=== PATIENT | female | born 1995 | race Caucasian/White ===

== ENCOUNTER 2022-09-22 08:00 | Outpatient (CLI) | payer OTHER ==
[2022-09-22 16:06] LABS: BILIRUBIN,URINE NEGATIVE (NEGATIVE); GLUCOSE, URINE (UA) NEGATIVE (NEGATIVE); KETONES,URINE (UA) TRACE mg/dL (NEGATIVE); LEUKOCYTE ESTERASE, URINE NEGATIVE (NEGATIVE); NITRITE,URINE NEGATIVE (NEGATIVE); OCCULT BLOOD,URINE NEGATIVE (NEGATIVE); PH,URINE 6.5 PH (5.0-7.5); PROTEIN,URINE NEGATIVE (NEGATIVE); UROBILINOGEN,URINE 0.2 (NORMAL) E.U./dL (NORMAL)
[2022-09-22 16:12] LABS: AMORPHOUS SEDIMENT,UR Moderate /LPF; BACTERIA,URINE Moderate /HPF (None Seen); CLARITY,URINE SL. CLOUDY (CLEAR); CRYSTALS,URINE 3-5 Calcium Oxalate /LPF; MUCUS,URINE Moderate Strands; RBC,URINE 0-5 /HPF (0-5); SQUAMOUS EPITHELIAL CELL,UR MOD Squamous (<= Few); WBC,URINE 0-3 /HPF (0-5)
== END 2022-09-22 23:59 | disposition home or self-care (01) ==
LOC: LAB.WC 08:00
PROVIDERS: ATTEND Obstetrics & Gynecology
DX: Z34.90 Encounter for supervision of normal pregnancy, unspecified, unspecified trimester (principal)
CPT/HCPCS: 81001; 87086

== ENCOUNTER 2022-09-30 20:47 | Outpatient (CLI) | payer OTHER ==
--- NOTE | 2022-10-01 03:29 | Ultrasound Report ---
PROCEDURE: OB First Trimester INDICATIONS: POSITIVE TEST OUTSIDE/PRIOR DATING DATA: Last menstrual period (LMP): 07/24/2022. LMP-based estimated date of delivery (PRANAV): 04/30/2023. First dating scan (date and location): 09/30/2022. Estimated date of delivery (PRANAV) from first dating scan: 04/27/2023. TECHNIQUE: Real-time scanning was performed of the fetus and maternal pelvic organs, with image documentation. COMPARISON: None. FINDINGS: Embryo: There is an intrauterine with a gestational sac, yolk sac, and pole demonstr ated. The crown-rump length measures up to 3.2 cm corresponding to gestational age of 10 weeks 1 day. There is heart motion with a rate of 171 bpm. Measurement variability in dating: +/- 4 weeks by LMP, +/- 7 days by mean sac diameter (use before 6 weeks gestation if crown-rump length not able to be measured), +/- 5 days by crown-rump length (6-12 weeks gestation). Maternal organs: Ovaries appear within normal size limits. No adnexal masses.. IMPRESSION: 1. Single living intrauterine with calculated gestational age of 10 weeks 1 day correspondi ng to an estimated delivery date of 04/27/2023. Reviewed by: Shahriar Pruett MD on 10/01/2022 3:27 AM PDT Approved by: Shahriar Pruett MD on 10/01/2022 3:27 AM PDT Station ID: [id number]
== END 2022-09-30 20:48 | disposition home or self-care (01) ==
LOC: DI 20:47
PROVIDERS: ATTEND Obstetrics & Gynecology
DX: Z34.91 Encounter for supervision of normal pregnancy, unspecified, first trimester (principal)

== ENCOUNTER 2022-10-07 08:00 | Outpatient (CLI) | payer OTHER ==
[2022-10-07 20:30] LABS: CHLAMYDIA TRACHOMATIS DNA NEGATIVE (NEGATIVE); NEISSERIA GONORRHOEAE DNA NEGATIVE (NEGATIVE); TRICHOMONAS VAGINALIS DNA NEGATIVE (NEGATIVE)
== END 2022-10-07 23:59 | disposition home or self-care (01) ==
LOC: LAB.WC 08:00
PROVIDERS: ATTEND Obstetrics & Gynecology
DX: Z11.3 Encounter for screening for infections with a predominantly sexual mode of transmission (principal)
CPT/HCPCS: 87491; 87591; 87661

== ENCOUNTER 2022-10-12 10:22 | Outpatient (CLI) | payer OTHER ==
[2022-10-12 10:43] LABS: BASOPHILS % (AUTO) 0.3 %; EOSINOPHILS # (AUTO) 0.1 10^3/uL (0.0-0.7); EOSINOPHILS % (AUTO) 0.7 %; HCT - HEMATOCRIT 33.8 % (37.0-47.0); HGB - HEMOGLOBIN 11.7 g/dL (12.0-16.0); LYMPHOCYTES # (AUTO) 2.4 10^3/uL (1.5-3.5); LYMPHOCYTES % (AUTO) 33.7 %; MEAN CORPUSCULAR HEMOGLOBIN 29.7 pg (27.0-31.0); MEAN CORPUSCULAR HGB CONC 34.6 g/dL (32.0-36.0); MEAN CORPUSCULAR VOLUME 85.8 fL (81.0-99.0); MEAN PLATELET VOLUME 9.7 fL (7.9-10.8); MONOCYTES # (AUTO) 0.3 10^3/uL (0.0-1.0); MONOCYTES % (AUTO) 4.4 %; NEUTROPHILS # (AUTO) 4.2 10^3/uL (1.5-6.6); NEUTROPHILS % (AUTO) 60.5 %; PLT - PLATELET COUNT 306 10^3/uL (130-450); RED BLOOD COUNT 3.94 10^6/uL (4.20-5.40); RED CELL DISTRIBUTION WIDTH 12.7 % (12.0-15.0)
[2022-10-13 05:13] LABS: HCV AB Non Reactive (Non Reactive); HIV SCREEN 4TH GENERATION Non Reactive (Non Reactive)
[2022-10-13 06:10] LABS: HBsAG SCREEN Negative (Negative)
[2022-10-13 07:10] LABS: RPR Non Reactive (Non Reactive)
[2022-10-13 08:10] LABS: VARICELLA-ZOSTER AB IGG 560 index (Immune >165)
== END 2022-10-12 10:23 | disposition home or self-care (01) ==
LOC: LAB 10:22
PROVIDERS: ATTEND Obstetrics & Gynecology
DX: O09.91 Supervision of high risk pregnancy, unspecified, first trimester (principal)
CPT/HCPCS: 36415; 85025; 86592; 86762; 86787; 86803; 86850; 86900; 86901; 87340; 87389

== ENCOUNTER 2022-11-24 09:35 | Outpatient (CLI) | payer OTHER ==
[2022-11-29 12:09] LABS: AFP MOM 0.79 (.); AFP VALUE 31.4 ng/mL (.); GEST. AGE ON COLLECTION DATE 17.6 weeks (.); GESTAT. AGE METHOD EDD (.); INSULIN DEP DIABETES No (.); MATERNAL AGE AT EDD 28.4 yr (.); MULTIPLE GESTATION No (.); OPEN SPINA BIFIDA RISK 1 IN 10000 (.); RACE Caucasian (.); RESULTS Report (.); TEST RESULTS *Screen Negative* (.); WEIGHT 166 lbs (.)
== END 2022-11-24 09:36 | disposition home or self-care (01) ==
LOC: LAB 09:35
PROVIDERS: ATTEND Obstetrics & Gynecology
DX: O34.211 Maternal care for low transverse scar from previous cesarean delivery (principal)
CPT/HCPCS: 36415; 82105

== ENCOUNTER 2022-12-22 16:47 | Outpatient (CLI) | payer OTHER ==
--- NOTE | 2022-12-23 13:01 | Ultrasound Report ---
PROCEDURE: OB 14+ Weeks INDICATIONS: SUPERVISION OF OUTSIDE/PRIOR DATING DATA: Last menstrual period (LMP): 07/24/2022. LMP-based estimated date of delivery (PRANAV): 04/30/2023. First dating scan (date and location): 09/30/2022. Estimated date of delivery (PRANAV) from first dating scan: 04/27/2023. The below data below was generated using the ultrasound PRANAV of 04/27/2023 TECHNIQUE: Real-time scanning was performed of the fetus, with image documentation and biometric measurements. Endovaginal scanning: Not performed. COMPARISON: OB ultrasound 09/30/2022. FINDINGS: General: A single living intrauterine gestation is present. Presentation: Vertex Placenta: Placental position is anterior, without previa. Amniotic fluid index: 19.5 cm, within normal limits for gestational age. Largest pocket 5.95 cm. heart rate: 138 beats per minute. Maternal cervical canal: 4.2 cm long; normal length is 2.5 cm or more. No funneling. biometrics: Biparietal diameter: 5.4 cm, 22 weeks 3 days Head circumference: 20.3 cm, 22 weeks 3 days Abdominal circumference: 18.6 cm, 23 weeks 2 days Femur length: 4.0 cm, 21 weeks 1 day Estimated gestational age from initial scan: 22 weeks 0 days. Composite gestational age from present scan: 22 weeks 3 days Estimated weight and percentile: 563 g, 92nd percentile Measurement variability for biometric dating: +/- 10 days from 12-20 weeks gestation, +/- 2 weeks fro m 20-30 weeks gestation, +/- 3 weeks for 30 weeks gestation or later. Anatomic survey: Neuro: Ventricles are non-dilated at less than 10 mm. Cisterna magna is normal at 3-11 mm. Cerebel lum is normal in size and morphology. Nuchal skin fold: Normal at less than 6 mm between 14-20 weeks gestational age. Face: Facial profile is normal. Spine: No evidence for spina bifida. Heart: 4-chambered heart is present. Diaphragm: Diaphragm is intact. Stomach: Left-sided stomach is present. Kidneys: No hydronephrosis. Normal is less than 5 mm in 2nd trimester, less than 7 mm in 3rd trimester. Cord: 3-vessel cord has orthotopic insertion. Bladder: Normal in size. IMPRESSION: 1. Torrez living intrauterine at 22 weeks 3 days based on today's ultrasound. This is co ncordant with the first trimester ultrasound. Estimated weight is in the 92nd percentile. 2. Normal placenta and amniotic fluid. 3. Normal limited anatomic survey. Reviewed by: Hernan Javier MD on 12/23/2022 12:59 PM PDT Approved by: Hernan Javier MD on 12/23/2022 12:59 PM PDT Station ID: [id number]
== END 2022-12-22 16:48 | disposition home or self-care (01) ==
LOC: DI 16:47
PROVIDERS: ATTEND Obstetrics & Gynecology
DX: O09.92 Supervision of high risk pregnancy, unspecified, second trimester (principal); Z3A.22 22 weeks gestation of pregnancy

== ENCOUNTER 2023-02-01 08:53 | Outpatient (CLI) | payer OTHER ==
[2023-02-01 10:18] LABS: HCT - HEMATOCRIT 30.9 % (37.0-47.0); HGB - HEMOGLOBIN 10.7 g/dL (12.0-16.0); MEAN CORPUSCULAR HEMOGLOBIN 30.4 pg (27.0-31.0); MEAN CORPUSCULAR HGB CONC 34.6 g/dL (32.0-36.0); MEAN CORPUSCULAR VOLUME 87.8 fL (81.0-99.0); MEAN PLATELET VOLUME 9.9 fL (7.9-10.8); RED BLOOD COUNT 3.52 10^6/uL (4.20-5.40); RED CELL DISTRIBUTION WIDTH 12.5 % (12.0-15.0); WHITE BLOOD COUNT 8.5 x10^3/uL (4.8-10.8)
== END 2023-02-01 08:54 | disposition home or self-care (01) ==
LOC: LAB 08:53
PROVIDERS: ATTEND Obstetrics & Gynecology
DX: O09.92 Supervision of high risk pregnancy, unspecified, second trimester (principal)
CPT/HCPCS: 36415; 82950; 85027; 86850

== ENCOUNTER 2023-02-03 09:08 | Outpatient (CLI) | payer OTHER ==
[2023-02-03 09:42] LABS: GTT GLUCOSE,FASTING 89 mg/dL (74-109)
== END 2023-02-03 09:09 | disposition home or self-care (01) ==
LOC: LAB 09:08
PROVIDERS: ATTEND Obstetrics & Gynecology
DX: O99.810 Abnormal glucose complicating pregnancy (principal)
CPT/HCPCS: 36415; 82951; 82952

== ENCOUNTER 2023-02-08 10:31 | Outpatient (CLI) | payer OTHER | END 2023-02-08 10:32 | disposition home or self-care (01) | LOC: LAB 10:31 | PROVIDERS: ATTEND Obstetrics & Gynecology | DX: L29.9 Pruritus, unspecified (principal) | CPT/HCPCS: 82542 ==

== ENCOUNTER 2023-02-28 09:02 | Outpatient (CLI) | payer OTHER ==
[2023-02-28 09:25] LABS: ALBUMIN 3.7 g/dL (3.2-5.5); ALBUMIN/GLOBULIN RATIO 1.4 (1.0-2.2); BILIRUBIN,TOTAL 0.3 mg/dL (0.2-1.0); CALCIUM 8.9 mg/dL (8.5-10.3); CREATININE 0.5 mg/dL (0.6-1.3); POTASSIUM 3.8 mmol/L (3.5-4.5); TOTAL PROTEIN 6.4 g/dL (6.4-8.9)
== END 2023-02-28 09:03 | disposition home or self-care (01) ==
LOC: LAB 09:02
PROVIDERS: ATTEND Obstetrics & Gynecology
DX: L29.9 Pruritus, unspecified (principal)
CPT/HCPCS: 36415; 80053; 82239

== ENCOUNTER 2023-04-04 21:07 | Outpatient (CLI) | payer OTHER ==
--- NOTE | 2023-04-05 14:02 | Ultrasound Report ---
PROCEDURE: OB F/U or Repeat INDICATIONS: SUPERVISION OF OUTSIDE/PRIOR DATING DATA: Last menstrual period (LMP): 07/24/2022. LMP-based estimated date of delivery (PRANAV): 04/30/2023. First dating scan (date and location): 09/30/2022. Estimated date of delivery (PRANAV) from first dating scan: 04/27/2023. The below data below was generated using the ultrasound PRANAV of 04/27/2023 TECHNIQUE: Real-time scanning was performed of the fetus, with image documentation and biometric measurements. Endovaginal scanning: Not performed. COMPARISON: None. FINDINGS: General: A single living intrauterine gestation is present. Presentation: Vertex Placenta: Placental position is anterior, without previa. Amniotic fluid index: 18.2 cm, within normal limits for gestational age. heart rate: 132 beats per minute. Maternal cervical canal not visualized. biometrics: Biparietal diameter: 8.7 cm, 35 weeks 1 day, 22nd percentile Head circumference: 32.6 cm, 37 weeks, 20th percentile Abdominal circumference: 33.3 cm, 37 weeks 1 day, 75th percentile Femur length: 7.3 cm, 37 weeks 2 days, 61.4 cm Estimated gestational age from initial scan: 36 weeks 5 days Composite gestational age from present scan: 36 weeks 5 days Estimated weight and percentile: 3070.9 g, 61st percentile Measurement variability in biometric dating: +/- 10 days from 12-20 weeks gestation, +/- 2 weeks from 20-30 weeks gestation, +/- 3 weeks at 30 weeks gestation or more. Other: Not applicable. IMPRESSION: Single living intrauterine at 36 weeks 5 days, PRANAV of 04/27/2023. Estimated weight of 3071 g, 61st percentile. Reviewed by: Hamilton Montgomery MD on 04/05/2023 2:01 PM PST Approved by: Hamilton Montgomery MD on 04/05/2023 2:01 PM PST Station ID: [id number]
== END 2023-04-04 21:08 | disposition home or self-care (01) ==
LOC: DI 21:07
PROVIDERS: ATTEND Obstetrics & Gynecology
DX: O09.93 Supervision of high risk pregnancy, unspecified, third trimester (principal); Z3A.36 36 weeks gestation of pregnancy

== ENCOUNTER 2023-04-05 08:00 | Outpatient (CLI) | payer OTHER | END 2023-04-05 23:59 | disposition home or self-care (01) | LOC: LAB 08:00 | PROVIDERS: ATTEND Obstetrics & Gynecology | DX: O09.93 Supervision of high risk pregnancy, unspecified, third trimester (principal) | CPT/HCPCS: 87797 ==

== ENCOUNTER 2023-04-25 08:23 | Inpatient (IN) | payer OTHER, MEDICAID ==
[2023-04-25] MEDS ORDERED: ceFAZolin (2G) 2 GM in SODIUM CHLORIDE 0.9% MINIBAG 100 ML IV ONE (08:45)
[2023-04-25] MEDS ORDERED: CITRIC ACID/SODIUM CITRATE 15 ML UDC PO ONE (08:45)
[2023-04-25] MEDS ORDERED: ACETAMINOPHEN 500 MG TABLET PO ONE (08:45)
[2023-04-25] MEDS ORDERED: LACTATED RINGERS 1,000 ML IV SCH ×3 (09:00→13:00)
[2023-04-25 09:40] LABS: BASOPHILS % (AUTO) 0.2 %; EOSINOPHILS % (AUTO) 0.5 %; HCT - HEMATOCRIT 30.3 % (37.0-47.0); HGB - HEMOGLOBIN 9.9 g/dL (12.0-16.0); LYMPHOCYTES # (AUTO) 2.3 10^3/uL (1.5-3.5); LYMPHOCYTES % (AUTO) 37.1 %; MEAN CORPUSCULAR HEMOGLOBIN 27.7 pg (27.0-31.0); MEAN CORPUSCULAR HGB CONC 32.7 g/dL (32.0-36.0); MEAN CORPUSCULAR VOLUME 84.6 fL (81.0-99.0); MEAN PLATELET VOLUME 11.2 fL (7.9-10.8); MONOCYTES # (AUTO) 0.3 10^3/uL (0.0-1.0); MONOCYTES % (AUTO) 5.4 %; NEUTROPHILS # (AUTO) 3.5 10^3/uL (1.5-6.6); NEUTROPHILS % (AUTO) 56.5 %; PLT - PLATELET COUNT 253 10^3/uL (130-450); RED BLOOD COUNT 3.58 10^6/uL (4.20-5.40); RED CELL DISTRIBUTION WIDTH 13.3 % (12.0-15.0); WHITE BLOOD COUNT 6.3 x10^3/uL (4.8-10.8)
[2023-04-25] MEDS ORDERED: PHENYLEPHRINE HCL 0.5 MG/5 ML AMPULE ONE (09:46)
[2023-04-25] MEDS ORDERED: SODIUM CHLORIDE 0.9% 10 ML VIAL IVP ONE (09:46)
[2023-04-25] MEDS ORDERED: ePHEDrine 50 MG/ML VIAL IVP ONE (09:46)
[2023-04-25 09:53] LABS: ALBUMIN 3.4 g/dL (3.2-5.5); ALBUMIN/GLOBULIN RATIO 1.2 (1.0-2.2); BILIRUBIN,TOTAL 0.3 mg/dL (0.2-1.0); CALCIUM 8.9 mg/dL (8.5-10.3); CREATININE 0.5 mg/dL (0.6-1.3); POTASSIUM 3.9 mmol/L (3.5-4.5); TOTAL PROTEIN 6.2 g/dL (6.4-8.9)
[2023-04-25] MEDS ORDERED: MORPHINE PF 5 MG/10 ML VIAL ONE (09:56)
[2023-04-25] MEDS ORDERED: fentaNYL 100 MCG/2 ML VIAL ONE (09:56)
[2023-04-25] MEDS ORDERED: ePHEDrine 50 MG/ML VIAL IVP PRN ×2 (10:00→11:11)
[2023-04-25] MEDS ORDERED: fentaNYL 100 MCG/2 ML VIAL IVP PRN (10:00)
[2023-04-25] MEDS ORDERED: METOCLOPRAMIDE 10 MG/2 ML VIAL IVP PRN ×2 (10:00→11:11)
[2023-04-25] MEDS ORDERED: HYDROmorphone 0.5 MG/0.5 ML SYRINGE IVP PRN (10:00)
[2023-04-25] MEDS ORDERED: ONDANSETRON 4 MG/2 ML VIAL IVP PRN ×3 (10:00→12:12)
[2023-04-25] MEDS ORDERED: NALOXONE 0.4 MG/ML VIAL IVP PRN ×3 (10:00→12:12)
[2023-04-25] MEDS ORDERED: MORPHINE 2 MG/ML CARPUJECT IVP PRN (10:00)
[2023-04-25] MEDS ORDERED: ATROPINE ABBOJECT 1 MG/10 ML SYRINGE IVP PRN (10:00)
--- NOTE | 2023-04-25 10:00 | ANESTHESIA ---
Pre-Anesthesia VS, & Labs - Diagnosis previous c/s - Procedure repeat c/s Vital Signs: Temp Pulse Resp BP Pulse Ox O2 Flow Rate 37 C 91 16 117/79 99 04/25/23 08:45 04/25/23 08:45 04/25/23 08:45 04/25/23 08:45 04/25/23 08:45 Height: 5 ft 4 in Weight (kg): 81.647 kg Body Mass Index: 30.9 BMI Classification: Obese - NPO >8 hours Last Fluid Intake: sips with tylenol - Is Patient ?: Yes - Lab Results Current Lab Results: Laboratory Tests 04/25/23 09:10: Sodium 134 L, Potassium 3.9, Chloride 106, Carbon Dioxide 19 L, Anion Gap 9.0, BUN 9, Creatinine 0.5 L, Estimated GFR (MDRD) 147, Glucose 86, Calcium 8.9, Total Bilirubin 0.3, AST 13, ALT 8 L, Alkaline Phosphatase 168 H, Total Protein 6.2 L, Albumin 3.4, Globulin 2.8, Albumin/Globulin Ratio 1.2 04/25/23 09:10: WBC 6.3, RBC 3.58 L, Hgb 9.9 L, Hct 30.3 L, MCV 84.6, MCH 27.7, MCHC 32.7, RDW 13.3, Plt Count 253, MPV 11.2 H, Neut # (Auto) 3.5, Lymph # (Auto) 2.3, [place] # (Auto) 0.3, Eos # (Auto) 0.0, Baso # (Auto) 0.0, Absolute Nucleated RBC 0.00, Nucleated RBC % 0.0 Lab results reviewed: Yes Fish Bones: 04/25/23 09:10 04/25/23 09:10 Home Medications and Allergies Active Medications Lactated Ringer's (Lr) 1,000 mls @ 125 mls/hr IV .Q8H AIDAN Last Admin: 04/25/23 09:37 Dose: 125 mls/hr Anes History & Medical History - Anesthetic History Anesthesia Complications: reports: No previous complications Family history of Anesthesia Complications: Denies Family history of Malignant Hyperthermia: Denies - Medical History Cardiovascular: reports: None Smoking Status: Never smoker Exam General: Alert, Oriented x3, Cooperative Dental: WNL Mouth Openin Fingerbreadth Neck Mobility: Normal Mallampati classification: II Thyromental Distance: 4-6 cm Respiratory: Lungs clear, Normal breath sounds, No respiratory distress Cardiovascular: Regular rate Neurological: Normal speech Mental/Cognitive Status: Alert/Oriented X3, Normal for patient Cognitive Status: Within normal limits Plan Anesthesia Type: Spinal Consent for Procedure(s) Verified and Reviewed: Yes Code Status: Attempt Resuscitation ASA classification: 2-Mild systemic disease Is this case an emergency?: No
[2023-04-25] MEDS ORDERED: OXYTOCIN/SODIUM CHLORIDE 500 ML IV ONE (10:05)
[2023-04-25] MEDS ORDERED: MORPHINE PF 5 MG/10 ML VIAL IT ONE (10:35)
[2023-04-25] MEDS ORDERED: fentaNYL 100 MCG/2 ML VIAL IT ONE (10:35)
[2023-04-25] MEDS ORDERED: OXYTOCIN 10 UNIT/ML VIAL ONE (10:45)
[2023-04-25] MEDS ORDERED: ONDANSETRON 4 MG/2 ML VIAL ONE (11:05)
[2023-04-25] MEDS ORDERED: KETOROLAC 30 MG/ML VIAL ONE (11:06)
[2023-04-25] MEDS ORDERED: diphenhydrAMINE INJ 50 MG/ML VIAL IVP PRN (11:11)
[2023-04-25] MEDS ORDERED: NALBUPHINE 10 MG/ML AMP IVP PRN (11:11)
[2023-04-25] MEDS ORDERED: LACTATED RINGERS 1,000 ML IV ONE (11:53)
[2023-04-25] MEDS ORDERED: LABETALOL 20 MG/4 ML SYRINGE IVP PRN ×3 (12:12)
[2023-04-25] MEDS ORDERED: hydrALAZINE INJ 20 MG/ML VIAL IVP PRN ×2 (12:12)
[2023-04-25] MEDS ORDERED: OXYTOCIN/SODIUM CHLORIDE 500 ML IV PRN (12:12)
[2023-04-25] MEDS ORDERED: SIMETHICONE CHEW 80 MG TABLET PO PRN (12:12)
[2023-04-25] MEDS ORDERED: oxyCODONE 5 MG TABLET PO PRN ×3 (12:12→20:00)
[2023-04-25] MEDS ORDERED: NIFEdipine 10 MG CAPSULE PO PRN (12:12)
--- NOTE | 2023-04-25 12:19 | OPERATIVE REPORT ---
Operative Report - General Admit Date: 04/25/23 Procedure Date: 04/25/23 - Other Other Information/Narrative: OPERATIVE NOTE Pre-operative diagnosis: 1. IUP @ 39w 2. h/o prior C/S 3. declines TOLAC Procedure: RLTCS via pfannensteil skin incision Post-operative diagnosis: MCKAYLA Surgeon: Marco Division Officer [employer]apons Department: [employer] Anesthesia: Spinal Findings: viable male infant, Apgars 8/9, born at 1131 normal uterus normal tubes & ovaries bilaterally no notable adhesions Complications: None apparent EBL: 500cc UOP: 100cc IVF: 1L Procedure in detail: After risks benefits and alternatives, as well as indication for procedure and anticipated post-operative recovery course, were discussed with the patient informed consent was obtained and patient was taken to the operating theater where spinal anesthesia was administered without difficulty. Dooley catheter was inserted in normal sterile fashion. Pt was prepared and draped in normal sterile fashion. Anesthesia was tested and found to be adequate. Prior to skin incision pt received recommended antibiotics, surgical time out was performed, and all persons in the operating theater participated in time out and agreed. Pfannensteil skin incision made with scalpel. Carried down to level of fasia. Fascia incised and extended. Anterior aspect of rectus sheath dissected off of rectus muscle without difficulty. Peritoneum entered without difficulty and surgical field extended with gentle lateral traction. Lower uterine segment identified, well developed. Uterine incision made with scalpel, uterus entered bluntly and incision extended bluntly. Surgeons right hand entered into lower uterine segment, presenting part elevated to level of incision and infant delivered atraumatically with vacuum assist x1 no pop-offs. Cord clamped and cut x2 after delayed cord clamping, baby handed to awaiting mold press operator, apgars as noted above. Placenta delivered manually. Uterus was not exteriorized. Uterine cavity cleaned with moist lap and found to be free of membranes or debris after teasing out trailing membranes. Uterine incision closed with 0 vicryl, running suture, and subsequently imbricated with the same suture. Incision inspected, hemostatic. Gutters cleaned. All inspected, hemostatic. Peritoneum reapproximated without suture. Muscles inspected, fascia inspected, hemostatic. Fascia closed with 0 looped PDS in running fashion. Subcutaneous tissue irrigated, and then closed with 2.0 vicryl in running fashion. Skin incision closed with subcuticular sutures with 4.0 vicryl. Pt and tolerated procedure well. All counts correct. Pt to PACU in stable condition.
--- NOTE | 2023-04-25 14:16 | ANESTHESIA POST OP EVALUATION ---
Anesthesia Post Eval - Post Anesthesia Eval Vitals: Last Vital Signs Temp 36.6 C 04/25/23 13:12 Pulse 87 04/25/23 13:12 Resp 16 04/25/23 13:12 BP 106/74 04/25/23 13:12 Pulse Ox 99 04/25/23 13:12 O2 Flow Rate CV Function Including HR & BP: Stable Pain Control: Satisfactory Nausea & Vomiting: Negative Mental Status: Baseline Respiratory Status: Airway Patent Hydration Status: Satisfactory Anesthesia Complications: None
[2023-04-25] MEDS: KETOROLAC 30 MG/ML VIAL IVP SCH ×2 (17:16→23:28)
[2023-04-25] MEDS: ACETAMINOPHEN 500 MG TABLET PO SCH (17:16)
[2023-04-25] MEDS: oxyCODONE 5 MG TABLET PO PRN (20:44)
[2023-04-26] MEDS: oxyCODONE 5 MG TABLET PO PRN ×4 (01:05→21:23)
[2023-04-26] MEDS: ACETAMINOPHEN 500 MG TABLET PO SCH ×3 (01:06→16:56)
[2023-04-26 05:55] LABS: HCT - HEMATOCRIT 25.4 % (37.0-47.0); HGB - HEMOGLOBIN 8.3 g/dL (12.0-16.0); MEAN CORPUSCULAR HEMOGLOBIN 27.9 pg (27.0-31.0); MEAN CORPUSCULAR HGB CONC 32.7 g/dL (32.0-36.0); MEAN CORPUSCULAR VOLUME 85.2 fL (81.0-99.0); MEAN PLATELET VOLUME 10.6 fL (7.9-10.8); RED BLOOD COUNT 2.98 10^6/uL (4.20-5.40); RED CELL DISTRIBUTION WIDTH 13.3 % (12.0-15.0); WHITE BLOOD COUNT 5.2 x10^3/uL (4.8-10.8)
[2023-04-26] MEDS: KETOROLAC 30 MG/ML VIAL IVP SCH (07:34)
[2023-04-26] MEDS: DOCUSATE SODIUM 100 MG CAPSULE PO SCH ×3 (09:00→21:23)
[2023-04-26] MEDS: IBUPROFEN 600 MG TABLET PO SCH ×2 (13:09→19:12)
--- NOTE | 2023-04-26 19:08 | PROVIDER PROGRESS NOTE ---
Subjective - Prog Note Date Prog Note Date: 04/26/23 Prog Note Time: 19:06 - Subjective Pt reports feeling: Improved Subjective: Pt well, lochia appropriate, + amb, + void, + raphael PO, + flatus Feeding going well -- pumping and bottle, not interested in the physical aspect of . pumped her last child as he was born premature. Bonding with baby Denies: F/C/N/V/CP/SOB Denies: dizziness, weakness, lightheadedness, difficulty with ambulation, palpitations Denies: CALDERON / visual changes Objective - Vital Signs/Intake & Output Reviewed Vital Signs: Yes Vital Signs: Vital Signs x48h Temp Pulse Resp BP Pulse Ox 04/26/23 13:00 97.9 F 86 16 111/78 99 Intake & Output: Intake & Output 04/23/23 04/24/23 04/25/23 04/26/23 23:59 23:59 23:59 23:59 Intake Total 2318 700 Output Total 810 1200 Balance 1508 -500 - Objective General Appearance: positive: No acute distress Eyes Bilateral: positive: Normal inspection ENT: positive: ENT inspection nml Neck: positive: Nml inspection Respiratory: positive: Chest non-tender, No respiratory distress, Breath sounds nml Cardiovascular: positive: Regular rate & rhythm Abdomen: positive: Non-tender, Other (soy 1 below U INC CDI) Skin: positive: Color nml, No rash, Warm, Dry Extremities: positive: Non-tender, Full ROM, Nml appearance, No pedal edema Neurologic/Psychiatric: positive: Oriented x3 - Lab Results Fish Bones: 04/26/23 05:47 04/25/23 09:10 Other Labs: Lab Results x24hrs 04/26/23 Range/Units 05:47 WBC 5.2 (4.8-10.8) x10^3/uL RBC 2.98 L (4.20-5.40) 10^6/uL Hgb 8.3 L (12.0-16.0) g/dL Hct 25.4 L (37.0-47.0) % MCV 85.2 (81.0-99.0) fL MCH 27.9 (27.0-31.0) pg MCHC 32.7 (32.0-36.0) g/dL RDW 13.3 (12.0-15.0) % Plt Count 179 (130-450) 10^3/uL MPV 10.6 (7.9-10.8) fL Assessment/Plan - Problem List (1) delivery delivered Impression: continue to advance, anticipate D/C home tomorrow (2) Anemia Impression: adding PO iron asymptomatic Qualifiers: Other causes of anemia: acute posthemorrhagic (3) state Impression: doing well mood is good supported by continue to advance anticipate D/C home tomorrow has a safe home to go home to, and bring baby home.
[2023-04-26 20:02] VITALS: O2SAT 98
[2023-04-27] MEDS: ACETAMINOPHEN 500 MG TABLET PO SCH (00:56)
[2023-04-27] MEDS: IBUPROFEN 600 MG TABLET PO SCH ×2 (00:56→07:30)
[2023-04-27] MEDS: oxyCODONE 5 MG TABLET PO PRN ×2 (02:15→07:30)
[2023-04-27] MEDS: DOCUSATE SODIUM 100 MG CAPSULE PO SCH (07:31)
[2023-04-27] MEDS ORDERED: FERROUS SULFATE 325 MG TABLET PO SCH (08:00)
[2023-04-27 12:39] VITALS: BP 104/78
--- NOTE | 2023-04-27 13:25 | DISCHARGE SUMMARY ---
"Discharge Summary Admit Date: 04/25/23 Discharge Date: 04/27/23 Discharging Provider: rene Primary Care Provider: rene Code Status: Attempt Resuscitation Condition at Discharge: Good Discharge Disposition: 01 Home, Self Care - DIAGNOSES Admission Diagnoses: IUP at 39 weeks h/o C/S scheduled repeat C/S post op Discharge Diagnoses with Status of Each Condition: IUP at 39 weeks h/o C/S scheduled repeat C/S post op -- all milestones met ready for discharge with pumping / supplementing baby - HPI History of Present Illness: Pt well, lochia appropriate, raphael PO, + void, + flat, + ambulation Feeding going well -- breast Pt reports ready to go home, has safe home to return to Reviewed: discharge instructions, post- instructions, follow up instructions, precautions, precautions regarding: feeding, depression, bleeding, and anticipated post- course All questions answered Pt verbalized understanding VSS NAD Conjunctiva pink, pale sclera +S1, S2 CTAB Breasts soft, not engorged, no nipple cracking Abd soft, NT, ND Fundus firm below umbilicus INC CDI Perineum intact, bleeding appropriate Ext: neg CCE - CONSULTS | PROCEDURES Procedures: [facility] post op care post care support - HOSPITAL COURSE Hospital Course: Pt admitted post op from [facility] routine PO care iron for anemia asymptomatic D/C home POD#2 with baby - ALLERGIES Allergies/Adverse Reactions: Allergies Allergy/AdvReac Type Severity Reaction Status Date / Time No Known Drug Allergies Allergy Verified 04/25/23 13:14 - LABS Result Diagrams: 04/26/23 05:47 04/25/23 09:10 - QUALITY (Female Hip Fx Only) Was patient sent home on osteoporosis medication?: No - FOLLOW UP Follow Up: [address] Lara - TIME SPENT Time Spent in Discharge (Minutes): 30"
--- NOTE | 2023-04-27 13:50 | Discharge Plan ---
Discharge Plan Problem Reviewed?: Yes Disposition: Home, Self Care Condition: Good Prescriptions: oxyCODONE [Roxicodone] 5 mg PO Q4HR PRN 5 Days #17 tab PRN Reason: Moderate Pain (Level 4-6) Ibuprofen [Motrin] 600 mg PO Q6HR #60 tab Docusate Sodium 100Mg Capsule [Colace 100Mg Capsule] 200 mg PO BID #60 cap Ferrous Sulfate [Feosol] 325 mg PO BIDWM #60 tab Acetaminophen [Tylenol] 1,000 mg PO Q8H #60 tab Diet: Regular Activity Restrictions: No Restrictions Shower Restrictions: No Driving Restrictions: No Instruction Topics: , Depression , Change Expect Parents, Checkup Well Baby Up to 1 Month, Childbirth Breast Care Health Concerns: post post op pumping Plan of Treatment: routine post / post op / care Assessment: stable & well. No Smoking: If you smoke, Please STOP! Call for help. Follow-up with: Dima Lara MD [Provider Admit Priv/Credential] -
== END 2023-04-27 14:35 | disposition home or self-care (01) | DRG 787 ==
LOC: FBP 08:23
PROVIDERS: ADMIT Obstetrics & Gynecology; ATTEND Obstetrics & Gynecology
PROC: 10D00Z1 Extraction of Products of Conception, Low, Open Approach (ICD-10-PCS; principal; 2023-04-25 10:45)
DX: O34.211 Maternal care for low transverse scar from previous cesarean delivery (principal); D62 Acute posthemorrhagic anemia; N85.8 Other specified noninflammatory disorders of uterus; Z3A.39 39 weeks gestation of pregnancy; Z37.0 Single live birth; O99.02 Anemia complicating childbirth; O99.214 Obesity complicating childbirth
CPT/HCPCS: 36415; 80053; 85025; 85027; 86850; 86900; 86901; A9270; J2274; J2372; J7120